=== PATIENT | female | born 1985 | race Caucasian/White ===

== ENCOUNTER 2018-02-24 15:05 | Emergency (ER) | payer OTHER ==
[~2018-02-24] VITALS: Ht 157.5 cm; Wt 54.4 kg
[2018-02-24 16:49] VITALS: BP 119/77
== END 2018-02-24 16:50 | disposition home or self-care (01) ==
LOC: M.ERS 15:05
DX: G43.909 Migraine, unspecified, not intractable, without status migrainosus (principal); Z88.2 Allergy status to sulfonamides